=== PATIENT | female | born 1930 | race Caucasian/White ===

== ENCOUNTER → 2018-03-24 | Outpatient (CLI) | payer MEDICARE, OTHER ==
[~2018-03-24] MED LIST: AMO500 PO; ATEN-65 PO; CITA-128 PO; DAR100 PO; DOC100 PO; ESTR0.5T18 PO; ESTRADIOL PO; FELO5TAB PO; GAB100 PO; HCTZ25 PO; HYDR-2966 PO; LEVO250T37 PO; LOSA25TA50 PO; METF-411 PO; NITR-105 PO; PANT40TA65 PO; RAN150 PO; TRA50 PO; TRAM-420 PO
--- NOTE | 2018-03-24 09:40 | RADIOLOGY IMAGING REPORT ---
FACILITY: [facility] PATIENT NAME: Toña Smart : 1930 MR: [id number] V: [id number] EXAM DATE: ORDERING PHYSICIAN: TD HINES TECHNOLOGIST: Location: [facility] Patient: Toña Smart : 1930 Visit/Account:[id number] Date of Sevice: 03/24/2018 Abdominal ultrasound Indication: Right upper quadrant pain Comparison: CT 10/03/2012 Findings: Liver is normal in size, contour, and echotexture and measures 14.0 cm in length. There is normal hep atopedal portal venous flow. The spleen is normal in size, contour, and echotexture and measures 8.8 cm in length. Gallbladder is surgically absent. Common duct measures 3.8 mm in maximum diameter with no evidence of shadowing stone. The head and proximal body of the pancreas is unremarkable. The distal body and tail is obscured by o verlying bowel gas. Abdominal aorta and IVC are patent and unremarkable. The bilateral kidneys are normal in size, contour, and echotexture with the right kidney measuring 7 .2 cm and the left kidney measuring 8.7 cm. IMPRESSION: 1. Unremarkable abdominal ultrasound as above. Report Dictated By: Olayinka Morton at 03/24/2018 9:29 AM Report E-Signed By: Olayinka Morton at 03/24/2018 9:36 AM WSN:[id number]
== END ==
LOC: US 03-14 01:29
PROVIDERS: ATTEND Family Medicine
DX: Z90.49 Acquired absence of other specified parts of digestive tract (principal)
CPT/HCPCS: 76700

== ENCOUNTER 2018-03-25 15:15 | Outpatient (RCR) | payer MEDICARE, OTHER ==
--- NOTE | 2018-03-15 16:54 | PT INITIAL EVALUATION ---
MEDICAL DIAGNOSIS: B L4/5 radiculopathy, LBP TREATMENT DIAGNOSIS: Same DATE OF ONSET: 09/20/17 SUBJECTIVE: Toña Smart presents to PT for B knee pain, R>L, insidious onset , worsening in the last 6 months. She's had lumbar injections for L4/5 anterolisthesis (6mm in 2016, MRI), but hasn't had treatment to her knees. She lives with her daughter, staying on the first floor, has tub transfer bench, RW , cane. her daughter, Arielle, relates Toña has been more sedentary in the last 6 months as her knees ache too much. Toña stands up to 30 minutes doing dishes , uses her cane or furniture to ambulate from room to room, otherwise doesn't walk much and isn't doing much housework. Oswestry Disability Index 51% impairment. Pain location is R>L knees (Toña outlines R L5 dermatome to peroneals) and described as ache. Pain scale is 7 on a ten point pain scale. Pain is worse with standing, walking and better with sitting. REHAB PROBLEM LIST: Increased Pain, Decreased ROM, Endurance, Balance, Function , ADL's, Mobility, Gait PREVIOUS MEDICAL HISTORY: Two falls, LE nerve pain, bladder suspension. OCCUPATION: Retired. OBJECTIVE: Posture: B knee valgus, R>L, trunk flexed ~30 degrees. ROM: Lumbar AROM flexion 75%, minimal extension. Strength: Reyes muscles L3/4/5 4+/5. Palpation: Painful R lateral and anterior knee, L4/5 (step off), R TFL and IT band, longer L LE due to R knee valgus. Special Tests: Positive R SLR 60 deg., R femoral nerve stretch at 60 degrees for R L5 pain to the peroneals. L SLR 70 degrees without radicular symptoms, negative femoral nerve stretch test. Negative Lachmann's, anterior drawer, Tulio's tests for R or L knee pain. Mobility: Sit<>supine<>sidelie min. assist due to R knee pain, mild LBP. Gait: RW, shortened R stance with mild vaulting, foot flat pattern, Balance: Double limb support only. Steady immediate standing balance with SANITIZER. ASSESSMENT: Toña Smart presents with R L4/5 radicular symptoms creating limiting R knee pain, reduced ADL's, ambulation, endurance, mobility. She had improved transfers and more upright trunk after lumbar e-stim and LE/lumbar manual stretching. Short Term Goals 4 weeks: Toña stands 45 min. doing dishes and laundry, ambulates 300 to 500 feet with RW for community mobility. 6 weeks: Toña stands 45 min to 60 min. with housework, ambulates short community distances with RW. Patient's Goals Stand longer and walk in the community. PLAN: Patient to be seen for lumbar treatment of Manual Therapy, Strengthening/ condition, Heat, Range of Motion, Spinal Stabilization, Stretching, Electrical Stim, Posture/Body mechanics, Gait Trg/Balance Trg, Home Exercise Program for 2x /Week for 6 Weeks Thank you for this referral. If you have any questions, comments, or concerns about this report or plan, please contact me at . [facility]
--- NOTE | 2018-03-30 09:47 | PT PLAN OF CARE ---
Physician: Dr. Mary Arroyo Patient is being seen: 2x/week Therapist: Nisreen Sen, PT Medical Diagnosis: B L4/5 radiculopathy, LBP Treatment Diagnosis: Same Date of Onset: 09/20/17 Date of Initial Evaluation: 03/15/18 Date patient was last seen: 03/25/18 Number of treatments: 3 Number of cancellations/No shows: 2 INTERVENTIONS: Manual Therapy, Range of Motion/Stretching, Spinal Stabilization , Electrical Stim GOALS: All not met: 4 weeks: Toña stands 45 min. doing dishes and laundry, ambulates 300 to 500 feet with RW for community mobility. 6 weeks: Toña stands 45 min to 60 min. with housework, ambulates short community distances with RW. PATIENT'S GOAL: Stand longer and walk in the community. not met Patient Compliance: Fair Prognosis: Excellent Reasons for discontinuing therapy: S: Toña cancelled her PT appointments. At her last visit, she did exercise and e -stim versus manual therapy, ROM/stretching and e-stim. She rated LBP 4/10 at her second visit, her pain rating wasn't recorded at her last visit. A/P: Toña Smart has discharged herself from PT. She had some reduction of LBP> I'll DC PT, per her request. Thank you. KARTHIK
== END 2018-03-25 18:00 | disposition home or self-care (01) ==
LOC: PT 15:15
PROVIDERS: ATTEND Family Medicine
DX: M54.16 Radiculopathy, lumbar region (principal); M25.561 Pain in right knee; M25.562 Pain in left knee; R26.89 Other abnormalities of gait and mobility; R29.6 Repeated falls
CPT/HCPCS: 97110; 97140; 97162; G0283